=== PATIENT | female | born 1960 | race Caucasian/White ===

== ENCOUNTER 2019-03-01 16:28 | Emergency (ER) | payer SELFPAY ==
[~2019-03-01] VITALS: Ht 157.5 cm; Wt 75.0 kg
[2019-03-01 16:33] VITALS: BP 148/72; PULSE 61; RESP 20; Ht 157.5 cm; Wt 75.0 kg
--- NOTE | 2019-03-01 16:36 | EN ---
Date/Time of Note Date/Time of Note DATE: 03/01/19 TIME: 16:34 ER Progress Note MSE in ED 3. History right foot fracture 10 days ago. Referred by clinic for further treatment. Follow-up x-ray initiated. No SIRS criteria /signs of ischemia. EDENILSON HALL MD March 01, 2019 16:36
[2019-03-01] MEDS ORDERED: IBUPROFEN 800 MG TAB PO ONE (17:00)
[2019-03-01] MEDS ORDERED: NAPR-985 PO (17:31)
--- NOTE | 2019-03-01 17:41 | ERD ---
ER Documentation Chief Complaint Chief Complaint right foot pain x 9 days. s/p fracture HPI This is a 58-year-old female patient who presents the emergency room with complaint of pain in right foot. 9 days ago patient slipped and fell at work injuring foot. Patient went to [facility] where she was told she had a fracture in her heel. She then went to [facility] for follow-up where there was a 9-hour wait so she left. [facility]. Patient presents with ortho glass splint and crutches. States that she has been using splint and crutches since injury 9 days ago, has not had any change in pain, no swelling, no paresthesias. Denies chronic medical problems. ROS All systems reviewed and are negative except as per history of present illness. Medications Home Meds Active Scripts Naproxen* (Naprosyn*) 500 Mg Tablet, 500 MG PO BID PRN for PAIN AND/OR INF LAMMATION, #30 TAB Prov:LILLIAM HELMS FURNACE MASON 03/01/19 Allergies Allergies: Coded Allergies: No Known Allergies (Verified Allergy, Unknown, 03/01/19) PMhx/Soc Medical and Surgical Hx: pt denies Medical Hx, pt denies Surgical Hx Hx Alcohol Use: No Hx Substance Use: No Hx Tobacco Use: No Smoking Status: Never smoker FmHx Family History: No diabetes, No coronary disease, No other Physical Exam Vitals Vital Signs Date Temp Pulse Resp B/P (MAP) Pulse Ox O2 O2 Flow FiO2 Time Delivery Rate 03/01/19 97.5 61 20 148/72 97 16:33 (97) Physical Exam Const: No acute distress Head: Atraumatic Eyes: Normal Conjunctiva, PERRL ENT: Normal External Ears, Nose and Mouth. Neck: Full range of motion. No meningismus. No lymphadenopathy, no thyromegaly Resp: Clear to auscultation bilaterally Cardio: Regular rate and rhythm, no murmurs Abd: Soft, non tender, non distended. Normal bowel sounds Skin: No petechiae or rashes Ext: No cyanosis, or edema. RLE: cap refill <2 sec, no swelling, no abrasions, no bruising, 5/5 strength w/pain w/movement, sensation intact Neur: Awake and alert Psych: Normal Mood and Affect Results 24 hrs Current Medications Medications Dose Sig/Dave Start Time Status Last (Trade) Ordered Route PRN Stop Time Admin Dose Reason Admin Ibuprofen 800 mg ONCE ONCE 03/01/19 DC 03/01/19 (Motrin) PO 17:00 17:07 03/01/19 17:01 Procedures/MDM Is a 58-year-old female patient who presents emergency room with complaint of pain in right foot. ED COURSE: The patient was stable throughout ED course. I kept the patient and/or family informed of laboratory and diagnostic imaging results throughout the ED course. DIAGNOSTIC IMAGING: Read by radiologist. Right foot. No acute fracture dislocation identified chronic appearing bony fragment adjacent to the cuboid. Small posterior calcaneal spur. PROCEDURES: Application of walking boot. +csm post splint placement, good fit, instructions provided. MEDICATIONS GIVEN: Ibuprofen Patient tolerated medication well with no adverse reactions. Patient reported improvement in pain. MDM: Patient's extremity symptoms have stabilized while they have been evaluated in the department and are appropriate for outpatient follow up. No evidence of compartment syndrome, neurologic injury, vascular injury, open joint, open fracture, tendon laceration, or foreign body. DISPOSITION: The patient has been discharge home to follow-up with community physician. Departure Diagnosis: Primary Impression: Foot pain Condition: Stable Patient Instructions: Fracture, Foot Referrals: COMMUNITY CLINICS YOU HAVE RECEIVED A MEDICAL SCREENING EXAM AND THE RESULTS INDICATE THAT YOU DO NOT HAVE A CONDITION THAT REQUIRES URGENT TREATMENT IN THE EMERGENCY DEPARTMENT. FURTHER EVALUATION AND TREATMENT OF YOUR CONDITION CAN WAIT UNTIL YOU ARE SEEN IN YOUR DOCTORS OFFICE WITHIN THE NEXT 1-2 DAYS. IT IS YOUR RESPONSIBILITY TO MAKE AN APPOINTMENT FOR FOLOW-UP CARE. IF YOU HAVE A PRIMARY DOCTOR --you should call your primary doctor and schedule an appointment IF YOU DO NOT HAVE A PRIMARY DOCTOR YOU CAN CALL OUR PHYSICIAN REFERRAL HOTLINE AT IF YOU CAN NOT AFFORD TO SEE A PHYSICIAN YOU CAN CHOSE FROM THE FOLLOWING [facility] [address] [place] [facility] [address] [facility] [address] [facility] [address] [facility] [address] [facility]. [facility] [address] [facility] Urgent Care 7 a.m.- 11 p.m. Every Day of the Week NO APPOINTMENT OR AUTHORIZATION NEEDED SO [facility] Hours: Mon-Fri 9:00 AM - 5:00 PM Additional Instructions: Thank you very much for allowing us to participate in your care. Your health and safety is our top priority at [facility]. Call your primary care doctor TOMORROW for an appointment during the next 2-4 days and bring all the information and medications prescribed. Have prescriptions filled and follow precisely the directions on the label. If the symptoms get worse and your provider is unavailable, return to the Emergency Department immediately. THE XRAY TODAY DOES NOT SHOW A NEW FRACTURE OR NEED FOR IMMEDIATE INTERVENTION TO OLD BONY FRAGMENT. USE WALKING BOOT UNTIL YOU FOLLOW-UP WITH ORTHOPEDIC DOCTOR FOR FOLLOW-UP. USE NAPROSYN TWICE DAILY FOR COMFORT. AVOID PROLONGED STANDING. LILLIAM HELMS NP March 01, 2019 17:41
== END 2019-03-01 18:06 | disposition home or self-care (01) ==
LOC: FTE 16:28
DX: M79.671 Pain in right foot (principal)
CPT/HCPCS: 73630